=== PATIENT | male | born 1935 | race Caucasian/White ===

== ENCOUNTER 2017-11-09 17:54 | Inpatient (IN) | payer OTHER ==
[~2017-11-09] VITALS: Ht 177.8 cm; Wt 83.9 kg
[~2017-11-09 17:54] MED LIST: ACIDOPHILUS1 EACH PO; BACITRACIN28.4 GM TOP; BREO ELLIPTA 11 EACH INH; FUROSEMIDE20 M1 PO; LIPITOR80 M1 PO; LOTRIMIN AF12 GM TOP; METOPROLOL SUCC25 M1 PO; PRINIVIL5 M1 PO; XARELTO20 M2 PO
--- NOTE | 2017-11-09 18:19 | ED DYSPNEA/ASTHMA COMPLAINT ---
History of Present Illness General Chief Complaint: Nausea, Vomiting, Diarrhea Stated Complaint: PRODUCTIVE COUGH X 4 DAYS WITH FEVER AND VOMITING Source: patient, family, old records Exam Limitations: no limitations Vital Signs & Intake/Output Vital Signs & Intake/Output Vital Signs Date Time Temp Pulse Resp B/P B/P Pulse O2 O2 Flow FiO2 Mean Ox Delivery Rate 11/09 2058 98 Room Air 11/09 2032 99.5 76 20 148/82 98 Room Air 11/09 1805 99.3 73 18 134/76 98 Room Air Allergies Coded Allergies: NO KNOWN ALLERGIES (NO) (10/07/10) NKA PER ANTIBIOTIC ORDER SHEET ON 10/07/10 -SJS Reconcile Medications Atorvastatin Calcium (Lipitor) 80 MG TABLET 1 TAB PO DAILY CHOLESTEROL ( Reported) Bacitracin 500 UNIT/GRAM OINT...G. 1 ZAY TOP BID ULCERATIONS (Reported) apply to affected area(s) Clotrimazole (Lotrimin AF) 1 % CREAM..G. 1 ZAY TOP BID FEET (Reported) apply to affected area(s) Fluticasone/Vilanterol (Breo Ellipta 100-25 Mcg INH) (Unknown Strength) BLST.W.DEV (Unknown Dose) INH PRN RESP (Reported) Furosemide 20 MG TABLET 1 TAB PO Thursday DIURETIC (Reported) Lactobacillus Acidophilus (Acidophilus) 1 EACH CAPSULE 1 CAP PO DAILY PROBIOTIC (Reported) Lisinopril (Prinivil) 5 MG TABLET 1 TAB PO QAM BP (Reported) Metoprolol Succinate 25 MG TAB 1 TAB PO QPM HEART/BP (Reported) Montelukast Sodium 10 MG TABLET 1 TAB PO DAILY ALLERGIES (Reported) Rivaroxaban (Xarelto) 20 MG TABLET 1 TAB PO QPM BLOOD THINNER (Reported) with food Triage Note: RECEIVED 82 YO MALE VALDO FROM HOME. PT WAS FOUND IN HIS CAR BY A NEIGHBOR AND WAS BOUHGHT INSIDE HIS HOME AND DAUGHTER CALLED. PT REPORTS PRODUCTIVE GREEN COUGH X 4 DAYS AND NAUSEA, VOMITING AND WEAKNESS TODAY. PT AWAKE, ALERT AND ORIENTED. O2 SATS 98% Triage Nurses Notes Reviewed? yes Onset: Abrupt Duration: day(s):, constant, continues in ED Timing: recent history Severity: moderate, severe HPI: 82-year-old high functioning male comes into the emergency room with increased weakness. Patient has been having cough congestion. No fever chills vomiting. Some lightheadedness. Denies any chest pain abdominal pain rashes. Started with some episodes of vomiting today. He is usually able to drive and take care of himself and was profoundly weak to the point where he cannot even walk today. Brought in by ambulance for further evaluation. Patient has had a productive cough with mucus. (Rocky Little) Past History Travel History Traveled to [place] past 21 day No Medical History Any Pertinent Medical History? see below for history Neurological: NONE EENT: NONE Cardiovascular: aortic aneurysm, hypertension, PACER/DEFIB Respiratory: COPD Gastrointestinal: NONE Hepatic: NONE Renal: NONE Musculoskeletal: NONE Psychiatric: NONE Endocrine: NONE Blood Disorders: NONE Cancer(s): prostate cancer Surgical History Surgical History: AICD / pacer Psychosocial History What is your primary language Romanian Tobacco Use: Quit >30 days ago Family History Hx Contributory? No (Rocky Little) Review of Systems Review of Systems Constitutional: Reports: see HPI. EENTM: Reports: no symptoms. Respiratory: Reports: see HPI. Cardiovascular: Reports: see HPI. GI: Reports: no symptoms. Genitourinary: Reports: no symptoms. Musculoskeletal: Reports: no symptoms. Skin: Reports: no symptoms. Neurological/Psychological: Reports: no symptoms. Hematologic/Endocrine: Reports: no symptoms. Immunologic/Allergic: Reports: no symptoms. All Other Systems: Reviewed and Negative (Rocky Little) Physical Exam Physical Exam General Appearance: alert, awake, mild distress Head: atraumatic Eyes: Bilateral: normal appearance. Ears, Nose, Throat: normal ENT inspection, hearing grossly normal Neck: normal inspection Respiratory: normal breath sounds, no respiratory distress Cardiovascular: regular rate/rhythm Gastrointestinal: soft, non-tender Extremities: pedal edema, Mild erythema to right lower extremity Neurologic/Psych: awake, alert, oriented x 3 Skin: intact Core Measures ACS in differential dx? No CVA/TIA Diagnosis No Sepsis Present: No Sepsis Focused Exam Completed? No (Rocky Little) Progress Differential Diagnosis: asthma, AMI, CHF, COPD, pulmonary embolism, pneumonia, pneumothorax, UTI, sepsis, Plan of Care: Orders Procedure Date/time Status Heart Healthy Diet 11/10 B Active Misc Message 11/09 2300 Active ED Holding Orders 11/09 2300 Active Vital Signs 06/11 2301 Active Code Status 06/11 2301 Active Admit to inpatient 11/09 2258 Active Patient Data 11/09 223 Active LACTIC ACID 11/09 2117 Active Telemetry/Wet Suit Gluer 11/09 1817 Active BLOOD CULTURE 11/09 1817 Active URINALYSIS 11/09 1817 Complete TROPONIN LEVEL 11/09 1817 Complete LIPASE 11/09 1817 Complete LACTIC ACID 11/09 1817 Complete COMPREHENSIVE METABOLIC PANEL 11/09 1817 Complete CBC WITHOUT DIFFERENTIAL 11/09 1817 Complete B-TYPE NATRIURETIC PEP (BNP) 11/09 1817 Complete AMYLASE 11/09 1817 Complete EKG 11/09 1817 Active Current Medications Sig/James Start time Last Medication Dose Stop Time Status Admin Sodium Chloride 1,000 ML Q13H 11/09 2144 AC 11/09 (Normal Saline 0.9%) 221 Laboratory Tests 11/09/17 191: Urine Color YEL, Urine Clarity CLEAR, Urine pH 6.0, Ur Specific [place] 1.025, Urine Protein TRACE H, Urine Ketones NEG, Urine Nitrite NEG, Urine Bilirubin NEG, Urine Urobilinogen 0.2, Ur Leukocyte Esterase NEG, Ur Microscopic SEDIMENT EXAMINED, Urine RBC FEW H, Urine WBC RARE, Urine Mucus MOD H, Urine Hemoglobin TRACE-INTACT H, Urine Glucose NEG 11/09/171907: Anion Gap 11, Estimated GFR > 60, BUN/Creatinine Ratio 20.0, Glucose 89, Lactic Acid 1.0, Calcium 8.5, Total Bilirubin 0.7, AST 29, ALT 18 L, Alkaline Phosphatase 105, Troponin I 0.03, Vky-P-Mlxgaeoixaz Pept 4320 H, Total Protein 7.2, Albumin 3.9, Globulin 3.3, Albumin/Globulin Ratio 1.2, Amylase 69, Lipase 94, CBC w Diff NO MAN DIFF REQ, RBC 4.07 L, MCV 86.3, MCH 29.1, MCHC 33.7, RDW 14.8 H, MPV 8.4, Gran % 75.8 H, Lymphocytes % 11.1 L, Monocytes % 12.1 H, Eosinophils % 0.5, Basophils % 0.5, Absolute Granulocytes 4.7, Absolute Lymphocytes 0.7 L, Absolute Monocytes 0.7 H, Absolute Eosinophils 0, Absolute Basophils 0 Microbiology 11/09 190 BLOOD: Blood Culture - RECD 11/10 1707 BLOOD: Blood Culture - RECD Diagnostic Imaging: Viewed by Me: Radiology Read. Discussed w/RAD: Radiology Read. Radiology Impression: PATIENT: CONG LECHUGA PRESENT AGE: 82 PATIENT ACCOUNT NO: [id number] : 33 LOCATION: [facility] ORDERING PHYSICIAN: Rocky FRANKLIN SERVICE DATE: 11/09/17 EXAM TYPE : CAT - CT HEAD WO IV CONTRAST EXAMINATION: CT HEAD WITHOUT CONTRAST CLINICAL INFORMATION: Altered mental status. COMPARISON: None. TECHNIQUE: Multidetector CT examination of the head is performed without contrast. DLP: 629 mGy-cm FINDINGS: Digital associate professor of automation: Cervical instrumentation. There is no evidence of a recent intracranial hemorrhage or extra-axial collection. The midline structures are nondisplaced. There is age-appropriate prominence of the ventricles, cisterns and sulci. There is no evidence of an intra-axial mass. There are no suspicious focal areas of abnormal brain attenuation. The quick-white interface is within normal limits. There is no evidence of acute territorial infarct. There is extensive patchy subcortical, deep and periventricular white matter low attenuation. There is opacification of many of the ethmoid air cells. There is opacity within some of the sphenoid sinus. There are thick secretions or fluid in the right maxillary sinus with nodular thickening. There is a hyperdense abnormality in the left maxillary antrum. There is thickening in the nasal cavity. IMPRESSION: 1. There is no evidence of a recent intracranial hemorrhage. 2. No acute infarct. 3. Moderately extensive nonspecific white matter low attenuation. 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 Fairly extensive paranasal sinus and nasal cavity thickening. DICTATED BY: Antonio Munguia MD DATE/TIME DICTATED: 11/09/171947 SPINNER IRON:JADA DATE/TIME TRANSCRIBED:11/09/171947 CONFIDENTIAL, DO NOT COPY WITHOUT APPROPRIATE AUTHORIZATION. <Electronically signed in Other Vendor System> SIGNED BY: Antonio Munguia MD 11/09/171954, PATIENT: CONG LECHUGA PRESENT AGE: 82 PATIENT ACCOUNT NO: [id number] : 33 LOCATION: [facility] ORDERING PHYSICIAN: Rocky FRANKLIN SERVICE DATE: 11/09/17 EXAM TYPE: CAT - CT ABD & PELVIS W/O IV CONTRAS EXAMINATION: CT ABDOMEN AND PELVIS WITHOUT CONTRAST CLINICAL INFORMATION: Vomiting. Altered mental status COMPARISON: Portions of a previous study 05/02/11 TECHNIQUE: Multidetector volumetric imaging was performed from the superior aspect of the liver through the pubic symphysis. Sagittal and coronal reformatted images were obtained on the technologist's workstation. DLP: 300 mGy-cm FINDINGS: LUNG BASES: There is artifact related to sternal wires and cardiac leads. There is tortuosity of the aorta. Thickened small airways and a few small tree-in-bud opacities in the left lower lobe. LIVER, GALLBLADDER, AND BILIARY TREE: No suspicious focal liver lesion. The left lobe is small. There is widening of the interlobar fissure. There is no calcified gallstone. There is no biliary dilation. PANCREAS: No definite mass. SPLEEN: Within normal limits ADRENAL GLANDS: No suspicious mass KIDNEYS AND URETERS: There is no large renal mass. There is mild fullness of the intrarenal collecting system and ureter on each side. No definite urinary calculus. BLADDER: Mild generalized wall thickening could be related to incomplete distention. GASTROINTESTINAL TRACT: Large amount fecal residue in the colon. No definite localized colonic wall thickening. No significant small bowel dilation. Equivocal thickening of the distal stomach. ABDOMINAL WALL: No significant hernia is appreciated. LYMPH NODES: No definite enlarged abdominal or pelvic lymph nodes. No free intraperitoneal fluid. VASCULAR: There are surgical clips in the left inguinal region. This could be related to vascular intervention. There is no abdominal aortic aneurysm. PELVIC VISCERA: The prostate is relatively small. OSSEOUS STRUCTURES: Previous sternotomy. Healing lower left rib fractures. Degenerative changes in the spine. IMPRESSION: Study limited by absence of contrast. No definite urinary, biliary or GI tract obstruction. No abscess. Difficult to assess the stomach but there could be some distal gastric wall thickening. This is not a definite finding. DICTATED BY: Antonio Munguia MD DATE/TIME DICTATED:04/18 SPINNER IRON:JADA DATE/TIME TRANSCRIBED:11/09/172116 CONFIDENTIAL, DO NOT COPY WITHOUT APPROPRIATE AUTHORIZATION. <Electronically signed in Other Vendor System> SIGNED BY: Antonio Munguia MD 11/09/172127, PATIENT: CONG LECHUGA PRESENT AGE: 82 PATIENT ACCOUNT NO: [id number] : 33 LOCATION: [facility] ORDERING PHYSICIAN: Rocky FRANKLIN SERVICE DATE: 11/09/17 EXAM TYPE: RAD - XRY-PORTABLE CHEST XRAY EXAMINATION: XR PORTABLE CHEST CLINICAL INFORMATION: Cough. COMPARISON: Chest radiograph 12/11/2016. TECHNIQUE: 2 portable frontal views of the chest were obtained. FINDINGS: The lungs are clear without consolidation, edema, effusion, or pneumothorax. The heart is top normal in size and the aorta is calcified. There is a left chest wall AICD in position. There are sternotomy wires in place. There are postoperative changes in the cervical spine. IMPRESSION: No active disease in the chest. DICTATED BY: Julio Cesar Ramirez MD DATE /TIME DICTATED:11/09/171916 SPINNER IRON:JADA DATE/TIME TRANSCRIBED: 11/09/171916 CONFIDENTIAL, DO NOT COPY WITHOUT APPROPRIATE AUTHORIZATION. < Electronically signed in Other Vendor System> SIGNED BY: Julio Cesar Ramirez MD 11/09/171921 Initial ED EKG: rate (75), pacemaker rhythm (Rocky Little) Departure Departure Disposition: STILL A PATIENT Condition: Stable Clinical Impression Primary Impression: Bronchitis Secondary Impressions: Gait instability, Sinusitis Referrals: Silva JORGE,Cash Camacho (PCP/Family) Departure Forms: Customer Survey General Discharge Information Admission Note Spoke With: Erick Stroud MD Documentation of Exam: Documentation of any treatments & extenuating circumstances including Concerns Regarding Discharge (functional status, medication knowledge or non-compliance, living conditions, etc.) that warrant an admission rather than observation: Patient will require physical therapy. IV antibiotics. Patient is below his normal mental status and ability to function. Unable to ambulate here in the emergency room. Profoundly weak. He is normally high functioning 82-year-old male. He may require short-term rehabilitation. Case management consultation. Infectious disease consultation. Gentle IV hydration. (Rocky Little) PA/BUCKET PUSHER Co-Sign Statement Statement: ED Attending supervision documentation- [X] I saw and evaluated the patient. I have also reviewed all the pertinent lab results and diagnostic results. I agree with the findings and the plan of care as documented in the PA's/BUCKET PUSHER's documentation. [] I have reviewed the ED Record and agree with the PA's/BUCKET PUSHER's documentation. [] Additions or exceptions (if any) to the PAs/BUCKET PUSHER's note and plan are summarized below: [] (Mable JORGE,Dell Garcia) Critical Care Note Critical Care Note Critical Care Time: non-applicable (Rocky Little)
--- NOTE | 2017-11-09 19:22 | RADIOLOGY REPORT ---
EXAMINATION: XR PORTABLE CHEST CLINICAL INFORMATION: Cough. COMPARISON: Chest radiograph 12/11/2016. TECHNIQUE: 2 portable frontal views of the chest were obtained. FINDINGS: The lungs are clear without consolidation, edema, effusion, or pneumothorax. The heart is top normal in size and the aorta is calcified. There is a left chest wall AICD in position. There are sternotomy wires in place. There are postoperative changes in the cervical spine. IMPRESSION: No active disease in the chest.
[2017-11-09 19:28] LABS: ABSOLUTE BASOPHIL COUNT 0 /CUMM (0.0-0.2); ABSOLUTE EOSINOPHIL COUNT 0 /CUMM (0.0-0.7); ABSOLUTE GRANULOCYTE CT 4.7 /CUMM (1.4-6.5); ABSOLUTE LYMPH COUNT 0.7 /CUMM (1.2-3.4); ABSOLUTE MONOCYTE COUNT 0.7 /CUMM (0.10-0.60); BASOPHIL % 0.5 % (0.0-2.0); EOSINOPHIL % 0.5 % (0-5); GRANULOCYTE % 75.8 % (42.2-75.2); HEMATOCRIT 35.2 % (42-52); MEAN CORPUSCULAR HGB 29.1 PG (27.0-31.0); MEAN CORPUSCULAR HGB CONC 33.7 G/DL (33.0-37.0); MEAN CORPUSCULAR VOLUME 86.3 FL (80.0-94.0); MEAN PLATELET VOLUME 8.4 FL (7.4-10.4); PLATELET COUNT 127 /CUMM (130-400); RBC DISTRIBUTION WIDTH 14.8 % (11.5-14.5); RED BLOOD CELL CT 4.07 /CUMM (4.70-6.10); WHITE BLOOD CELL COUNT 6.2 /CUMM (4.8-10.8)
--- NOTE | 2017-11-09 19:55 | CT SCAN REPORT ---
EXAMINATION: CT HEAD WITHOUT CONTRAST CLINICAL INFORMATION: Altered mental status. COMPARISON: None. TECHNIQUE: Multidetector CT examination of the head is performed without contrast. DLP: 629 mGy-cm FINDINGS: Digital research neuropsychologist: Cervical instrumentation. There is no evidence of a recent intracranial hemorrhage or extra-axial collection. The midline structures are nondisplaced. There is age-appropriate prominence of the ventricles, cisterns and sulci. There is no evidence of an intra-axial mass. There are no suspicious focal areas of abnormal brain attenuation. The quick-white interface is within normal limits. There is no evidence of acute territorial infarct. There is extensive patchy subcortical, deep and periventricular white matter low attenuation. There is opacification of many of the ethmoid air cells. There is opacity within some of the sphenoid sinus. There are thick secretions or fluid in the right maxillary sinus with nodular thickening. There is a hyperdense abnormality in the left maxillary antrum. There is thickening in the nasal cavity. IMPRESSION: 1. There is no evidence of a recent intracranial hemorrhage. 2. No acute infarct. 3. Moderately extensive nonspecific white matter low attenuation. 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 Fairly extensive paranasal sinus and nasal cavity thickening.
--- NOTE | 2017-11-09 21:28 | CT SCAN REPORT ---
EXAMINATION: CT ABDOMEN AND PELVIS WITHOUT CONTRAST CLINICAL INFORMATION: Vomiting. Altered mental status COMPARISON: Portions of a previous study 05/02/11 TECHNIQUE: Multidetector volumetric imaging was performed from the superior aspect of the liver through the pubic symphysis. Sagittal and coronal reformatted images were obtained on the technologist's workstation. DLP: 300 mGy-cm FINDINGS: LUNG BASES: There is artifact related to sternal wires and cardiac leads. There is tortuosity of the aorta. Thickened small airways and a few small tree-in-bud opacities in the left lower lobe. LIVER, GALLBLADDER, AND BILIARY TREE: No suspicious focal liver lesion. The left lobe is small. There is widening of the interlobar fissure. There is no calcified gallstone. There is no biliary dilation. PANCREAS: No definite mass. SPLEEN: Within normal limits ADRENAL GLANDS: No suspicious mass KIDNEYS AND URETERS: There is no large renal mass. There is mild fullness of the intrarenal collecting system and ureter on each side. No definite urinary calculus. BLADDER: Mild generalized wall thickening could be related to incomplete distention. GASTROINTESTINAL TRACT: Large amount fecal residue in the colon. No definite localized colonic wall thickening. No significant small bowel dilation. Equivocal thickening of the distal stomach. ABDOMINAL WALL: No significant hernia is appreciated. LYMPH NODES: No definite enlarged abdominal or pelvic lymph nodes. No free intraperitoneal fluid. VASCULAR: There are surgical clips in the left inguinal region. This could be related to vascular intervention. There is no abdominal aortic aneurysm. PELVIC VISCERA: The prostate is relatively small. OSSEOUS STRUCTURES: Previous sternotomy. Healing lower left rib fractures. Degenerative changes in the spine. IMPRESSION: Study limited by absence of contrast. No definite urinary, biliary or GI tract obstruction. No abscess. Difficult to assess the stomach but there could be some distal gastric wall thickening. This is not a definite finding.
[2017-11-09] MEDS ORDERED: MONTELUKAST SOD10 M1 PO (21:51)
--- NOTE | 2017-11-09 22:39 | History & Physical ---
Michael JORGE,Fred 11/09/17 2238: General Information and HPI MD Statement: I have seen and personally examined CONG LECHUGA SR and documented this H&P. The patient is a 82 year old M who presented with a patient stated chief complaint of []. Source of Information: patient, old records Exam Limitations: confusion History of Present Illness: Patient is an 82-year-old male with PMH significant for AAA, HTN, CHF, A. fib status post pacemaker defibrillator placement, COPD, right knee arthritis, prostate cancer status post chemotherapy approximately 78 years ago currently in remission, who is brought in by ambulance to the [facility] ED after being found confused and weak by his neighbor. Patient reports that approximately 1 week prior to admission he began having nonbloody diarrhea, a few episodes a day. About 45 days prior to admission he began having nasal congestion, postnasal drip, cough with green sputum. He had poor p.o. intake for the past several days, and was found in his car today appearing confused by his neighbor. He cannot recall why he was in his car. He was very weak at this time, required assistance getting back into his house. He had an episode of vomiting after his neighbor gave him some water and at that time they called the ambulance. Patient was able to provide most of this history however it was corroborated by his daughter (Yadira James). he denies any shortness of breath, fevers, chills, chest pain, palpitations, lightheadedness, dizziness, syncope. Patient follows with Dr. Car for cardiology. Allergies/Medications Allergies: Coded Allergies: NO KNOWN ALLERGIES (NO) (10/07/10) NKA PER ANTIBIOTIC ORDER SHEET ON 10/07/10 -[facility] Home Med list Atorvastatin Calcium (Lipitor) 80 MG TABLET 1 TAB PO DAILY CHOLESTEROL ( Reported) Bacitracin 500 UNIT/GRAM OINT...G. 1 ZAY TOP BID ULCERATIONS (Reported) apply to affected area(s) Clotrimazole (Lotrimin AF) 1 % CREAM..G. 1 ZAY TOP BID FEET (Reported) apply to affected area(s) Fluticasone/Vilanterol (Breo Ellipta 100-25 Mcg INH) (Unknown Strength) BLST.W.DEV (Unknown Dose) INH PRN RESP (Reported) Furosemide 20 MG TABLET 1 TAB PO Thursday DIURETIC (Reported) Lactobacillus Acidophilus (Acidophilus) 1 EACH CAPSULE 1 CAP PO DAILY PROBIOTIC (Reported) Lisinopril (Prinivil) 5 MG TABLET 1 TAB PO QAM BP (Reported) Metoprolol Succinate 25 MG TAB 1 TAB PO QPM HEART/BP (Reported) Montelukast Sodium 10 MG TABLET 1 TAB PO DAILY ALLERGIES (Reported) Rivaroxaban (Xarelto) 20 MG TABLET 1 TAB PO QPM BLOOD THINNER (Reported) with food Past History Travel History Traveled to [place] past 21 day No Medical History Neurological: NONE EENT: NONE Cardiovascular: aortic aneurysm, AFIB, chronic venous insuff, hypertension, PACER/DEFIB, CHF Respiratory: COPD Gastrointestinal: NONE Hepatic: NONE Renal: NONE Musculoskeletal: NONE Psychiatric: NONE Endocrine: NONE Blood Disorders: NONE Cancer(s): prostate cancer Surgical History Surgical History: hernia repair-inguinal, AICD / pacer Past Family/Social History Family History Relations & Conditions if any Relation not specified for: *No pertinent family history Psychosocial History Where do you live? Home Who Do You Live With? self Services at Home: None Primary Language: Maori Smoking Status: Former Smoker ETOH Use: occasional use Illicit Drug Use: denies illicit drug use Living Will? yes Functional Ability ADLs Independent: dressing, eating, toileting, bathing. Ambulation: cane IADLs Independent: shopping, housework, finances, food prep, telephone, transportation , medication admin. Review of Systems Review of Systems Constitutional: Denies: chills, fever, weakness. EENTM: Denies: blurred vision, double vision, visual changes. Cardiovascular: Reports: peripheral edema (chronic). Denies: chest pain, palpitations, syncope. Respiratory: Reports: cough, sputum production. Denies: short of breath. GI: Reports: diarrhea, nausea, vomiting. Denies: abdominal pain, melena. Genitourinary: Reports: frequency. Denies: discharge, hematuria. Musculoskeletal: Reports: no symptoms. Skin: Reports: no symptoms. Neurological/Psychological: Reports: no symptoms. Hematologic/Endocrine: Reports: no symptoms. Exam & Diagnostic Data Last 24 Hrs of Vital Signs/I&O Vital Signs Date Time Temp Pulse Resp B/P B/P Pulse O2 O2 Flow FiO2 Mean Ox Delivery Rate 11/09 2330 100.4 83 18 130/78 95 Room Air 06/11 2059 98 Room Air 11/09 2032 99.5 76 20 148/82 98 Room Air 11/09 180 99.3 73 18 134/76 98 Room Air Intake & Output 11/10 0800 11/10 0000 11/09 1600 Intake Total 250 Output Total Balance 250 Intake, IV 250 Patient 198 lb Weight Weight Estimated Measurement Method Physical Exam General Appearance Alert, Cooperative, No Acute Distress, oriented to person and time, knows he is in a hospital but not the name Skin Temp/Moisture Exam: Warm/Dry Sepsis Skin Exam (color): Normal for Ethnicity HEENT Atraumatic, PERRLA, EOMI, dry mucous membranes Cardiovascular Regular Rate, Normal S1, Normal S2, AICD noted on L chest, systolic murmur at apex Lungs Clear to Auscultation, Normal Air Movement Abdomen Normal Bowel Sounds, Soft, No Tenderness Neurological Normal Speech, Strength at 5/5 X4 Ext, Normal Tone, Sensation Intact, Cranial Nerves 3-12 NL Extremities distal LE edema R>L Last 24 Hrs of Labs/Juan David: Laboratory Tests 11/09/172117: Lactic Acid Cancelled 11/09/171913: Urine Color YEL, Urine Clarity CLEAR, Urine pH 6.0, Ur Specific Mcgregor 1.025, Urine Protein TRACE H, Urine Ketones NEG, Urine Nitrite NEG, Urine Bilirubin NEG, Urine Urobilinogen 0.2, Ur Leukocyte Esterase NEG, Ur Microscopic SEDIMENT EXAMINED, Urine RBC FEW H, Urine WBC RARE, Urine Mucus MOD H, Urine Hemoglobin TRACE-INTACT H, Urine Glucose NEG 11/09/17 190: Anion Gap 11, Estimated GFR > 60, BUN/Creatinine Ratio 20.0, Glucose 89, Lactic Acid 1.0, Calcium 8.5, Phosphorus 3.3, Magnesium 1.7, Total Bilirubin 0.7, AST 29, ALT 18 L, Alkaline Phosphatase 105, Troponin I 0.03, Kkt-G-Buvnmkbfzns Pept 4320 H, Total Protein 7.2, Albumin 3.9, Globulin 3.3, Albumin/Globulin Ratio 1.2, Amylase 69, Lipase 94, TSH 0.566, CBC w Diff NO MAN DIFF REQ, RBC 4.07 L, MCV 86.3, MCH 29.1, MCHC 33.7, RDW 14.8 H, MPV 8.4, Gran % 75.8 H, Lymphocytes % 11.1 L, Monocytes % 12.1 H, Eosinophils % 0.5, Basophils % 0.5, Absolute Granulocytes 4.7, Absolute Lymphocytes 0.7 L, Absolute Monocytes 0.7 H, Absolute Eosinophils 0, Absolute Basophils 0 Microbiology 11/09 2306 LOWER RESP: Respiratory Culture - ORD 11/09 2306 LOWER RESP: Gram Stain - ORD 11/09 1900 BLOOD: Blood Culture - RECD 11/09 1708 BLOOD: Blood Culture - RECD Diagnostic Data EKG Results Paced, HR 75, QTc 492 CXR Results The lungs are clear without consolidation, edema, effusion, or pneumothorax. The heart is top normal in size and the aorta is calcified. There is a left chest wall AICD in position. There are sternotomy wires in place. There are postoperative changes in the cervical spine. IMPRESSION: No active disease in the chest. Other Results Head CT Digital medical record retrieval specialist: Cervical instrumentation. There is no evidence of a recent intracranial hemorrhage or extra-axial collection. The midline structures are nondisplaced. There is age-appropriate prominence of the ventricles, cisterns and sulci. There is no evidence of an intra-axial mass. There are no suspicious focal areas of abnormal brain attenuation. The quick-white interface is within normal limits. There is no evidence of acute territorial infarct. There is extensive patchy subcortical, deep and periventricular white matter low attenuation. There is opacification of many of the ethmoid air cells. There is opacity within some of the sphenoid sinus. There are thick secretions or fluid in the right maxillary sinus with nodular thickening. There is a hyperdense abnormality in the left maxillary antrum. There is thickening in the nasal cavity. IMPRESSION: 1. There is no evidence of a recent intracranial hemorrhage. 2. No acute infarct. 3. Moderately extensive nonspecific white matter low attenuation. 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 Fairly extensive paranasal sinus and nasal cavity thickening. CT abd/pelvis LUNG BASES: There is artifact related to sternal wires and cardiac leads. There is tortuosity of the aorta. Thickened small airways and a few small tree-in-bud opacities in the left lower lobe. LIVER, GALLBLADDER, AND BILIARY TREE: No suspicious focal liver lesion. The left lobe is small. There is widening of the interlobar fissure. There is no calcified gallstone. There is no biliary dilation. PANCREAS: No definite mass. SPLEEN: Within normal limits ADRENAL GLANDS: No suspicious mass KIDNEYS AND URETERS: There is no large renal mass. There is mild fullness of the intrarenal collecting system and ureter on each side. No definite urinary calculus. BLADDER: Mild generalized wall thickening could be related to incomplete distention. GASTROINTESTINAL TRACT: Large amount fecal residue in the colon. No definite localized colonic wall thickening. No significant small bowel dilation. Equivocal thickening of the distal stomach. ABDOMINAL WALL: No significant hernia is appreciated. LYMPH NODES: No definite enlarged abdominal or pelvic lymph nodes. No free intraperitoneal fluid. VASCULAR: There are surgical clips in the left inguinal region. This could be related to vascular intervention. There is no abdominal aortic aneurysm. PELVIC VISCERA: The prostate is relatively small. OSSEOUS STRUCTURES: Previous sternotomy. Healing lower left rib fractures. Degenerative changes in the spine. IMPRESSION: Study limited by absence of contrast. No definite urinary, biliary or GI tract obstruction. No abscess. Difficult to assess the stomach but there could be some distal gastric wall thickening. This is not a definite finding. Assessment/Plan Assessment: Patient is an 82-year-old male with PMH significant for AAA, HTN, CHF, A. fib status post pacemaker defibrillator placement, COPD, right knee arthritis, prostate cancer status post chemotherapy approximately 78 years ago currently in remission, who is brought in by ambulance to the [facility] ED after being found confused and weak by his neighbor. Patient reports that approximately 1 week prior to admission he began having nonbloody diarrhea, a few episodes a day. About 45 days prior to admission he began having nasal congestion, postnasal drip, cough with green sputum. Patient is oriented 2, is aware of his confusion and per his daughter he has altered mental status compared to baseline. Head CT showing paranasal sinus thickening and nasal cavity thickening, CXR shows no acute infective process however abdomen/pelvis CT shows small left lower lobe opacities Vital signs on presentation: T-max 100.4, P 73, RR 18, BP 134/76, oxygen saturation 98% on room air Labs: WBC 6.2, H/H 11.8/35.2, platelets 127, sodium 136, potassium 4.3, chloride 100, CO2 25, BUN 20, creatinine 1.0, glucose 89, lactic acid 1.0, proBNP 4320 Problem list #Bronchitis with suspected pneumonia #Chronic medical problems including A. fib, CHF, AAA, COPD Plan -Admit to general medicine -IV azithromycin, IV ceftriaxone -Mucinex -TRC/nebs -sputum culture, blood cultures, urine legionella and strep atigens -Gentle IV hydration -Consider repeat chest x-ray after IV hydration -hold home lisinopril for now restart if BP allows, hold home lasix - Continue rest of home medications, of note patient is currently on Xarelto however his insurance will no longer cover this, he will continue taking Xarelto until he runs out at home and then switch to Eliquis, we will continue Xarelto for now Diet: Heart healthy diet DVT prophylaxis: Xarelto, Alps CODE STATUS: Full code As Ranked By This Provider Problem List: 1. Bronchitis 2. Pneumonia Core Measures/Misc (02/15) Acute Coronary Syndrome ACS Diagnosis: No Congestive Heart Failure Congestive Heart Failure Diagnosis No Cerebrovascular Accident CVA/TIA Diagnosis: No VTE (View Protocol) VTE Risk Factors Age>40 No Mechanical VTE Prophylaxis d/t N/A MechProphylax Ordered No VTE Pharm Prophylaxis d/t NA PharmProphylax ordered Sepsis (View protocol) Sepsis Present: No If YES complete Sepsis Event Note If YES complete Sepsis Event Note Samreen JORGE,Ismail 11/09/17 2301: Core Measures/Misc (02/15) Sepsis (View protocol) If YES complete Sepsis Event Note If YES complete Sepsis Event Note Resident Review Statement Resident Statement: examined this patient, discussed with international first officer, agreed with international first officer, reviewed images Other Findings: HPI 82/M With PMHx of HTN, COPD, Prostate cancer s/p chemo 7-8 years ago, stable AAA , A. fib, and CHF with Pacer/AICD, who presented with 4 days of cough. The pt reports diarrhea for couple of days followed by nasal congestion postnasal drip, and cough that started 4 days ago and progressed to cough productive of green sputum, lethargic and poor appetite. Earlier today his neighbor found him in his car with mild confused and weakness. The neighbor tried to give him some water, but he developed nausea and vomited once. He required assistance to get back into his house. He denies dyspnea, fever, chills, chest pain, palpitation, lightheadedness, dizziness, syncope, sick contacts, or recent travel. Assessment: The patient presents with cough productive of green sputum, weakness and mild confusion. It may be early for x-ray to show signs for pneumonia. He developed a fever up to 100.4 and had thickened small airways and a few small tree-in-bud opacities in the left lower lobe on lung bases on Abd CT. given his presentation we will treat him as a CAP with IV ceftriaxone and azithromycin. This should also cover possible sinusitis as Head CT showed extensive paranasal sinus and nasal cavity thickening. If blood pressure is stable we will restart lisinopril in am. He report poor oral intake for the past few days and recent diarrhea, we will hold lasix and IV hydrate with NS @ 75ml/h. All other chronic condition looks stable, we will continue the rest of his home medications. Problem list * Hypertension * COPD not on home oxygen * Stable AAA * A. fib * CHF * Pacemaker/ACID * Prostate cancer in remission. Plan: * Admit to general medicine floor * Start IV ceftriaxone and continue IV azithromycin * Mucinex BID and nasal saline spray Q4 * Sputum culture, strep and Legionella and urine * Hydrate with IV normal saline at rate 75 mL per hour * Hold Lasix until able to tolerate oral intake. * Continue Xarelto * Start Symbicort, at home he is on Breo * Continue metoprolol 25 mg XL * Continue atorvastatin * Continue Montelukast -Full code -DVT prophylaxis with Alps and Xarelto -Heart healthy diet LuanneErick dobbins 11/10/17 0419: Core Measures/Misc (02/15) Sepsis (View protocol) If YES complete Sepsis Event Note If YES complete Sepsis Event Note Attending MD Review Statement Attending Statement Attending MD Statement: examined this patient, discuss w/resident/PA/ENVELOPE STUFFER, agreed w/resident/PA/ENVELOPE STUFFER, reviewed EMR data (avail), reviewed images, amended to note Attending Assessment/Plan: CC: Productive cough, lethargy and confusion PMH: COPD/asthma, history of A. fib S/P AICD, abdominal aortic aneurysm, history of CA prostate under remission, HLD, HTN, arthritis, right lower extremity vascular procedure Patient was brought in ER through EMS from home after he was found in his car by his neighbor weak and lethargic. Patient states that he drove to restaurant this morning, when he came back he was feeling very weak and tired so he was sitting in the car when his neighbor saw him and came to help him. Then neighbor was trying to help him inside home patient could not even walk and had to sit bicarbonate side. At that time he had nausea and one episode of vomiting. So he was brought in ER. Patient states that he has been having cough with greenish color expectoration since last 4 days along with nasal congestion and sinus congestion postnasal drip. He states that he has been having sinus congestion and postnasal drip for a long time, followed up with ENT in the past without much relief but cough has been worse since last 4 days with decreased by mouth intake. Patient also states that he had diarrhea for 3 days prior to this cough, 2-3 loose bowel movements per day not associated with nausea vomiting, abdominal cramping, bloody stool or fever or chills. At baseline patient is independent, lives alone. Lately he has been noticing increased frequency in urine and he was suggested to follow-up with urologist by his primary care physician. He denies any pleuritic chest pain, palpitation, dizziness, fever, chills, body rash. Vitals: Temperature 99.5, pulse 76, RR 20, blood pressure 148/82, saturating 98% on room air On examination: A O 2, cooperative, lethargic, constantly coughing, no acute distress, neck supple, JVD normal, no lymphadenopathy, mucosa dry, no focal neurological deficit, right LE swelling +2 >> LLE , no obvious skin rashes or inflammation CVS: S1-S2, irregular, paroxysmal systolic murmur. RS: Clear to auscultate bilaterally. Abdomen: Soft, NT, ND, bowel sounds present. CXR: No active disease in the chest. CT head without contrast: 1. There is no evidence of a recent intracranial hemorrhage. 2. No acute infarct. 3. Moderately extensive nonspecific white matter low attenuation. 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 Fairly extensive paranasal sinus and nasal cavity thickening. CT abdomen pelvis without IV contrast: 1. Study limited by absence of contrast. No definite urinary, biliary or GI tract obstruction. No abscess. Difficult to assess the stomach but there could be some distal gastric wall thickening. This is not a definite finding. 2. There is artifact related to sternal wires and cardiac leads. There is tortuosity of the aorta. Thickened small airways and a few small tree-in-bud opacities in the left lower lobe. Assessment and plan 82-year-old male with above-mentioned past medical history presented in ER for lethargy, weakness, 4 day history of productive cough with greenish color sputum production, an episode of confusion and nausea vomiting that happened today. Patient has significant nasal twang, nasal congestion, sinusitis on examination and confirmed on head CT scan. Additionally patient appears to have early pneumonia which is not evident on x-ray but CT abdomen and pelvis done without contrast showed thickened small airway and a few small tree-in-bud opacities in left lower lobe. Patient has mild left shift otherwise labs unremarkable. Received azithromycin ER with 1 L normal saline, we'll additionally give ceftriaxone to continue treatment for community-acquired pneumonia, gentle hydration. Patient's proBNP is 4320 but baseline unknown, currently patient does not appear in acute failure and in fact appears dehydrated requiring hydration. We'll hold off any antihypertensives and diuretics for now. + Suspected left lower lobe pneumonia + Bronchitis, sinusitis + History of COPD/asthma, history of A. fib S/P AICD, abdominal aortic aneurysm, history of CA prostate under remission, HLD, HTN, arthritis, right lower extremity vascular procedure - Admit to general medicine - Continue gentle hydration with normal saline at 75 mL per hour for 1 more liter - Blood culture, sputum culture - Continue IV ceftriaxone and azithromycin - Urine Legionella and strep antigen - Continue nasal fluticasone spray - TR nebs - Mucinex - Conform and Continue all his home medications except lisinopril and Lasix. Restart lisinopril in a.m. if blood pressure stable throughout the night - DVT prophylaxis
[2017-11-10 00:56] VITALS: BP 127/75
--- NOTE | 2017-11-10 04:21 | Admission Certification ---
Admission Certification Certification Statement - As attending physician, I certify that at the time of - admission, based on clinical presentation, severity of - symptoms, need for further diagnostic testing and - therapeutic interventions, and risk of adverse outcomes - without in-hospital treatment, in my clinical assessment, - this patient requires an acute hospital stay for a minimum - of two nights or longer. I have also considered psychsocial - factors such as support system, advanced age, financial - issues, cognitive issues, and failed out-patient treatments, - past re-admission history, safety of patient, and lack of - compliance as applicable. Specific rationale supporting this admission is: Suspected left lower lobe pneumonia
[2017-11-10 06:20] VITALS: BP 126/64
--- NOTE | 2017-11-10 07:29 | PN- Housestaff ---
Subjective Follow-up For: Bronchitis CAP Subjective: Patient reports nasal congestion and cough. He also reports he his using Xarelto at home prescribed by Dr. Goddard because he does not want to throw it away prior to starting his Apixaban that was started by his current PCP-Dr. Ascencio Review of Systems Constitutional: Reports: see HPI. Objective Last 24 Hrs of Vital Signs/I&O Vital Signs Date Time Temp Pulse Resp B/P B/P Pulse O2 O2 Flow FiO2 Mean Ox Delivery Rate 11/10 1030 Room Air Room Air 11/10 0844 75 126/64 11/10 0800 Room Air 11/10 0620 99.0 75 20 126/64 93 Room Air 11/10 0056 99.1 80 22 127/75 95 Room Air 11/09 2330 100.4 83 18 130/78 95 Room Air 11/09 2059 98 Room Air 11/09 2033 99.5 76 20 148/82 98 Room Air 11/09 1806 99.3 73 18 134/76 98 Room Air Intake & Output 11/10 1600 11/10 0800 11/10 0000 Intake Total 840 250 Output Total 150 Balance -150 840 250 Intake, IV 600 250 Intake, Oral 240 Output, Urine 150 Patient 186 lb 198 lb Weight Weight Bed scale Estimated Measurement Method Physical Exam General Appearance: Alert, Oriented X3, Cooperative, No Acute Distress Cardiovascular: 2/6 systolic murmur Lungs: Decreased breath sounds Abdomen: Normal Bowel Sounds, Soft, No Tenderness Current Medications: Current Medications Sig/James Start time Last Medication Dose Route Stop Time Status Admin Albuterol Sulfate 3 ML BID 11/10 1028 AC 11/10 INH 1029 Apixaban 5 MG BID 11/11 0900 AC PO Atorvastatin Calcium 80 MG 1700 11/10 1700 AC PO Azithromycin 500 MG DAILY 11/10 09 AC 11/10 Sodium Chloride 250 ML IV 0847 Azithromycin 500 MG ONCE ONE 11/09 2145 DC 11/09 Sodium Chloride 250 ML IV 11/09 2244 2219 Budesonide/ 2 PUF BID 11/10 09 AC 11/10 Formoterol Fumarate INH 0844 Ceftriaxone Sodium 1,000 MG Q24H 11/11 0200 AC IV Ceftriaxone Sodium 1,000 MG DAILY 11/10 0215 DC 11/10 IV 0221 Clotrimazole 1 ZAY BID 11/10 09 AC 06/12 TOP 0842 Fluticasone 2 SPRAY DAILY 11/10 0946 AC 11/10 Propionate AMADA 1057 Guaifenesin 600 MG Q12 11/10 0900 AC 11/10 PO 0850 Ipratropium [place] 2.5 ML BID 11/10 1028 AC 11/10 INH 1029 Lactobacillus 1 CAP DAILY 11/10 0900 AC 11/10 Acidophilus PO 0844 Lisinopril 5 MG QAM 11/10 0900 CAN PO Lisinopril 5 MG DAILY 11/10 0900 AC 11/10 PO 0844 Metoprolol Succinate 25 MG QPM 11/10 2100 AC PO Montelukast Sodium 10 MG 2200 11/10 2200 AC PO Oxymetazoline HCl 2 SPRAY BID 11/10 0945 11/10 AMADA 1057 Patient Medication 1 ED ONE ONE 11/10 1130 DC Teaching ED 11/10 1131 Rivaroxaban 20 MG DAILY 11/10 0900 CAN PO Rivaroxaban 20 MG DAILY 11/10 0900 DC 11/10 PO 0843 Sodium Chloride 2 SPRAY Q4P PRN 11/10 0615 AMADA Sodium Chloride 1,000 ML Q13H 11/09 2145 UT 11/09 IV 2219 Last 24 Hrs of Lab/Juan David Results Last 24 Hrs of Labs/Mics: Laboratory Tests 11/10/17 0640: Anion Gap 9, Estimated GFR > 60, BUN/Creatinine Ratio 21.1, Vitamin B12 657, Folate 19.5, CBC w Diff NO MAN DIFF REQ, RBC 3.81 L, MCV 86.7, MCH 29.0, MCHC 33.5, RDW 14.7 H, MPV 8.5, Gran % 61.4, Lymphocytes % 20.9, Monocytes % 17.0 H , Eosinophils % 0.2, Basophils % 0.5, Absolute Granulocytes 3.4, Absolute Lymphocytes 1.2, Absolute Monocytes 0.9 H, Absolute Eosinophils 0, Absolute Basophils 0 11/09/172117: Lactic Acid Cancelled 11/09/171913: Urine Color YEL, Urine Clarity CLEAR, Urine pH 6.0, Ur Specific [place] 1.025, Urine Protein TRACE H, Urine Ketones NEG, Urine Nitrite NEG, Urine Bilirubin NEG, Urine Urobilinogen 0.2, Ur Leukocyte Esterase NEG, Ur Microscopic SEDIMENT EXAMINED, Urine RBC FEW H, Urine WBC RARE, Urine Mucus MOD H, Urine Hemoglobin TRACE-INTACT H, Urine Glucose NEG 11/09/171907: Anion Gap 11, Estimated GFR > 60, BUN/Creatinine Ratio 20.0, Glucose 89, Lactic Acid 1.0, Calcium 8.5, Phosphorus 3.3, Magnesium 1.7, Total Bilirubin 0.7, AST 29, ALT 18 L, Alkaline Phosphatase 105, Troponin I 0.03, Ibq-G-Hjdvgxidggj Pept 4320 H, Total Protein 7.2, Albumin 3.9, Globulin 3.3, Albumin/Globulin Ratio 1.2, Amylase 69, Lipase 94, TSH 0.566, CBC w Diff NO MAN DIFF REQ, RBC 4.07 L, MCV 86.3, MCH 29.1, MCHC 33.7, RDW 14.8 H, MPV 8.4, Gran % 75.8 H, Lymphocytes % 11.1 L, Monocytes % 12.1 H, Eosinophils % 0.5, Basophils % 0.5, Absolute Granulocytes 4.7, Absolute Lymphocytes 0.7 L, Absolute Monocytes 0.7 H, Absolute Eosinophils 0, Absolute Basophils 0 Microbiology 11/10 08 LOWER RESP: Respiratory Culture - RES 11/10 856 LOWER RESP: Gram Stain - RES 11/10 329 URINE ROUT: Legionella Antigen - COMP 11/10 329 URINE ROUT: Streptococcus pneumoniae Antigen (M - COMP 11/09 1899 BLOOD: Blood Culture - RES 11/10 1707 BLOOD: Blood Culture - RES Assessment/Plan Assessment: 82-year-old male with PMH significant for AAA, HTN, CHF, A. fib status post pacemaker defibrillator placement, COPD, right knee arthritis, prostate cancer status post chemotherapy approximately 78 years ago currently in remission, who is brought in by ambulance to the [facility] ED after being found confused and weak by his neighbor. #Bronchitis with underlying pneumonia Plan Continue IV azithromycin, IV ceftriaxone TRC/nebs PRN Await final sputum culture, blood cultures Urine legionella and strep ag negative Resume lisinopril Lasix on hold We spoke to Dr. Ascencio who states that the patient should be on Apixaban 5 mg BID We will discontinue his Xarelto and restart him on APixaban Diet: Heart healthy diet DVT prophylaxis: Apixaban CODE STATUS: Full Problem List: 1. Bronchitis 2. Pneumonia Pain Ratin Pain Location: NA Pain Goal: Remain pain free Pain Plan: NA Tomorrow's Labs & Rationales: CBC, BEP
[2017-11-10 07:45] LABS: ABSOLUTE BASOPHIL COUNT 0 /CUMM (0.0-0.2); ABSOLUTE EOSINOPHIL COUNT 0 /CUMM (0.0-0.7); ABSOLUTE GRANULOCYTE CT 3.4 /CUMM (1.4-6.5); ABSOLUTE LYMPH COUNT 1.2 /CUMM (1.2-3.4); ABSOLUTE MONOCYTE COUNT 0.9 /CUMM (0.10-0.60); BASOPHIL % 0.5 % (0.0-2.0); EOSINOPHIL % 0.2 % (0-5); GRANULOCYTE % 61.4 % (42.2-75.2); MEAN CORPUSCULAR HGB CONC 33.5 G/DL (33.0-37.0); MEAN CORPUSCULAR VOLUME 86.7 FL (80.0-94.0); MEAN PLATELET VOLUME 8.5 FL (7.4-10.4); PLATELET COUNT 107 /CUMM (130-400); RBC DISTRIBUTION WIDTH 14.7 % (11.5-14.5); RED BLOOD CELL CT 3.81 /CUMM (4.70-6.10); WHITE BLOOD CELL COUNT 5.5 /CUMM (4.8-10.8)
--- NOTE | 2017-11-10 11:41 | PN- Att Addend ---
Attending Addendum Attending Brief Note Patient seen and examined, slightly better today. Patient is admitted with acute confusion likely secondary to infectious etiology from bronchitis as well as early pneumonia. Vital Signs Date Time Temp Pulse Resp B/P B/P Pulse O2 O2 Flow FiO2 Mean Ox Delivery Rate 11/10 1030 Room Air Room Air 11/10 0844 75 126/64 11/10 0800 Room Air 11/10 0620 99.0 75 20 126/64 93 Room Air 11/10 0056 99.1 80 22 127/75 95 Room Air 11/09 2330 100.4 83 18 130/78 95 Room Air 11/09 2059 98 Room Air 11/09 2033 99.5 76 20 148/82 98 Room Air 11/09 1806 99.3 73 18 134/76 98 Room Air on exam; aox3, nad. cv; s1,s2, rrr resp; decrease bs at b/l bases r sided sounds decrease > left. abd; soft, nt, bs+ ext; no edema Laboratory Tests 11/10 11/09 0640 2118 Chemistry Sodium (137 - 145 mmol/L) 138 Potassium (3.5 - 5.1 mmol/L) 4.0 Chloride (98 - 107 mmol/L) 103 Carbon Dioxide (22 - 30 mmol/L) 25 Anion Gap (5 - 16) 9 BUN (9 - 20 mg/dL) 19 Creatinine (0.7 - 1.2 mg/dL) 0.9 Estimated GFR (>60 ml/min) > 60 BUN/Creatinine Ratio (7 - 25 %) 21.1 Lactic Acid Cancelled Vitamin B12 (239 - 931 pg/mL) 657 Folate (2.76 - 20.0 ng/mL) 19.5 Hematology CBC w Diff NO MAN DIFF REQ WBC (4.8 - 10.8 /CUMM) 5.5 RBC (4.70 - 6.10 /CUMM) 3.81 L Hgb (14.0 - 18.0 G/DL) 11.1 L Hct (42 - 52 %) 33.0 L MCV (80.0 - 94.0 FL) 86.7 MCH (27.0 - 31.0 PG) 29.0 MCHC (33.0 - 37.0 G/DL) 33.5 RDW (11.5 - 14.5 %) 14.7 H Plt Count (130 - 400 /CUMM) 107 L MPV (7.4 - 10.4 FL) 8.5 Gran % (42.2 - 75.2 %) 61.4 Lymphocytes % (20.5 - 51.1 %) 20.9 Monocytes % (1.7 - 9.3 %) 17.0 H Eosinophils % (0 - 5 %) 0.2 Basophils % (0.0 - 2.0 %) 0.5 Absolute Granulocytes (1.4 - 6.5 /CUMM) 3.4 Absolute Lymphocytes (1.2 - 3.4 /CUMM) 1.2 Absolute Monocytes (0.10 - 0.60 /CUMM) 0.9 H Absolute Eosinophils (0.0 - 0.7 /CUMM) 0 Absolute Basophils (0.0 - 0.2 /CUMM) 0 11/09 11/09 191 1908 Chemistry Sodium (137 - 145 mmol/L) 136 L Potassium (3.5 - 5.1 mmol/L) 4.3 Chloride (98 - 107 mmol/L) 100 Carbon Dioxide (22 - 30 mmol/L) 25 Anion Gap (5 - 16) 11 BUN (9 - 20 mg/dL) 20 Creatinine (0.7 - 1.2 mg/dL) 1.0 Estimated GFR (>60 ml/min) > 60 BUN/Creatinine Ratio (7 - 25 %) 20.0 Glucose (65 - 99 mg/dL) 89 Lactic Acid (0.7 - 2.1 mmol/L) 1.0 Calcium (8.4 - 10.2 mg/dL) 8.5 Phosphorus (2.5 - 4.5 mg/dL) 3.3 Magnesium (1.6 - 2.3 mg/dL) 1.7 Total Bilirubin (0.2 - 1.3 mg/dL) 0.7 AST (17 - 59 U/L) 29 ALT (21 - 72 U/L) 18 L Alkaline Phosphatase (< 127 U/L) 105 Troponin I (<0.11 ng/ml) 0.03 Byc-V-Bhothlcqwxn Pept (<125 pg/mL) 4320 H Total Protein (6.3 - 8.2 g/dL) 7.2 Albumin (3.5 - 5.0 g/dL) 3.9 Globulin (1.9 - 4.2 gm/dL) 3.3 Albumin/Globulin Ratio (1.1 - 2.2 %) 1.2 Amylase (30 - 110 U/L) 69 Lipase (23 - 300 U/L) 94 TSH (0.270 - 4.200 uIU/mL) 0.566 Hematology CBC w Diff NO MAN DIFF REQ WBC (4.8 - 10.8 /CUMM) 6.2 RBC (4.70 - 6.10 /CUMM) 4.07 L Hgb (14.0 - 18.0 G/DL) 11.8 L Hct (42 - 52 %) 35.2 L MCV (80.0 - 94.0 FL) 86.3 MCH (27.0 - 31.0 PG) 29.1 MCHC (33.0 - 37.0 G/DL) 33.7 RDW (11.5 - 14.5 %) 14.8 H Plt Count (130 - 400 /CUMM) 127 L MPV (7.4 - 10.4 FL) 8.4 Gran % (42.2 - 75.2 %) 75.8 H Lymphocytes % (20.5 - 51.1 %) 11.1 L Monocytes % (1.7 - 9.3 %) 12.1 H Eosinophils % (0 - 5 %) 0.5 Basophils % (0.0 - 2.0 %) 0.5 Absolute Granulocytes (1.4 - 6.5 /CUMM) 4.7 Absolute Lymphocytes (1.2 - 3.4 /CUMM) 0.7 L Absolute Monocytes (0.10 - 0.60 /CUMM) 0.7 H Absolute Eosinophils (0.0 - 0.7 /CUMM) 0 Absolute Basophils (0.0 - 0.2 /CUMM) 0 Urines Urine Color (YEL,AMB,STR) YEL Urine Clarity (CLEAR) CLEAR Urine pH (5.0 - 8.0) 6.0 Ur Specific [place] (1.001 - 1.035) 1.025 Urine Protein (NEG,<30 MG/DL) TRACE H Urine Ketones (NEG) NEG Urine Nitrite (NEG) NEG Urine Bilirubin (NEG) NEG Urine Urobilinogen (0.1 - 1.0 EU/dl) 0.2 Ur Leukocyte Esterase (NEG) NEG Ur Microscopic SEDIMENT EXAMINED Urine RBC (0 - 5 /HPF) FEW H Urine WBC (0 - 2 /HPF) RARE Urine Mucus (FEW,NONE) MOD H Urine Hemoglobin (NEG) TRACE-INTACT H Urine Glucose (N MG/DL) NEG A/P; 82 y/o M with pmh sig for AAA, HTN, CHF, A. fib status post pacemaker defibrillator placement, COPD, right knee arthritis, prostate cancer status post chemotherapy approximately 78 years ago currently in remission admitted with acute confusion secondary to acute bronchitis as well as possible early pneumonia which is community-acquired. Patient currently on ceftriaxone and azithromycin which will be continued. Urine Legionella strep antigen negative. We'll follow-up on the sputum cultures. Patient also mentions that his anticoagulation will be switched to Eliquis per his doctor because that is cheaper. Currently he takes Xarelto because he still has some left. At this point we'll switch him to Eliquis and patient will be instructed to continue taking Eliquis upon discharge. Patient encouraged emulation. DVT prophylaxis; Eliquis. Noted a drop in platelet count. Will monitor. This could be secondary to infection.
[2017-11-10 14:41] VITALS: BP 106/60
[2017-11-11 06:48] VITALS: BP 120/76
--- NOTE | 2017-11-11 07:10 | PN- Housestaff ---
Litzy Alvarado 11/11/17 0710: Subjective Follow-up For: Bronchitis CAP Subjective: Patient reports persistent cough and chest congestion. Review of Systems Constitutional: Reports: see HPI. Objective Last 24 Hrs of Vital Signs/I&O Vital Signs Date Time Temp Pulse Resp B/P B/P Pulse O2 O2 Flow FiO2 Mean Ox Delivery Rate 11/11 0648 98.8 85 20 120/76 94 Room Air 11/10 2215 98.4 92 20 93 11/10 2033 76 110/72 11/10 1915 93 Room Air 11/10 1600 Room Air 11/10 1441 98.3 74 22 106/60 95 11/10 1030 Room Air Room Air 11/10 0844 75 126/64 11/10 0800 Room Air Intake & Output 11/11 0800 11/11 0000 11/10 1600 Intake Total 074 118 8927 Output Total 200 750 625 Balance 40 -50 580 Intake, IV 225 Intake, Oral 240 700 980 Number 2 Bowel Movements Output, Urine 200 750 625 Patient 185 lb Weight Physical Exam General Appearance: Alert, Oriented X3, Cooperative Cardiovascular: Regular Rate, Normal S1, Normal S2 Lungs: Decreased breath sounds Abdomen: Normal Bowel Sounds, Soft, No Tenderness Current Medications: Current Medications Sig/James Start time Last Medication Dose Route Stop Time Status Admin Albuterol Sulfate 3 ML BID 11/10 1028 AC 11/10 INH 191 Apixaban 5 MG BID 11/11 0900 AC PO Atorvastatin Calcium 80 MG 1700 11/10 1700 AC 11/10 PO 1605 Azithromycin 500 MG DAILY 11/10 0900 AC 11/10 Sodium Chloride 250 ML IV 0847 Budesonide/ 2 PUF BID 11/10 0900 AC 11/10 Formoterol Fumarate INH 203 Ceftriaxone Sodium 1,000 MG Q24H 11/11 0200 AC 11/11 IV 0107 Ceftriaxone Sodium 1,000 MG DAILY 11/10 0215 DC 11/10 IV 0221 Clotrimazole 1 ZAY BID 11/10 09 AC 11/10 TOP 2032 Fluticasone 2 SPRAY DAILY 11/10 0946 AC 11/10 Propionate AMADA 1057 Guaifenesin 600 MG Q12 11/10 0900 AC 11/10 PO 2033 Ipratropium [place] 2.5 ML BID 11/10 1028 AC 11/10 INH 1915 Lactobacillus 1 CAP DAILY 11/10 0900 AC 11/10 Acidophilus PO 0844 Lisinopril 5 MG DAILY 11/10 0900 AC 11/10 PO 0844 Metoprolol Succinate 25 MG QPM 11/10 2100 AC 11/10 PO 203 Montelukast Sodium 10 MG 2200 11/10 2200 AC 11/10 PO 203 Oxymetazoline HCl 2 SPRAY BID 11/10 0945 AC 11/10 AMADA 203 Patient Medication 1 ED ONE ONE 11/10 1130 DC Teaching ED 11/10 1131 Rivaroxaban 20 MG DAILY 11/10 0900 DC 11/10 PO 0843 Sodium Chloride 2 SPRAY Q4P PRN 11/10 0615 AC AMADA Sodium Chloride 1,000 ML Q13H 11/09 2145 DC 11/09 IV 2219 Last 24 Hrs of Lab/Juan David Results Last 24 Hrs of Labs/Mics: Laboratory Tests 11/11/17 0630: CBC w Diff Pending, WBC Pending, RBC Pending, Hgb Pending, Hct Pending, MCV Pending, MCH Pending, MCHC Pending, RDW Pending, Plt Count Pending, MPV Pending Microbiology 11/10 0857 LOWER RESP: Respiratory Culture - RES 11/10 0857 LOWER RESP: Gram Stain - RES Assessment/Plan Assessment: 82-year-old male with PMH significant for AAA, HTN, CHF, A. fib status post pacemaker defibrillator placement, COPD, right knee arthritis, prostate cancer status post chemotherapy approximately 78 years ago currently in remission, who is brought in by ambulance to the [facility] ED after being found confused and weak by his neighbor. #Bronchitis with underlying pneumonia Plan We will transition azithromycin, IV ceftriaxone to Augmentin to complete a 7-day course TRC/nebs PRN Await final sputum culture, blood cultures Urine legionella and strep ag negative Continue lisinopril Lasix on hold We spoke to Dr. Ascencio who states that the patient should be on Apixaban 5 mg BID We will discontinue his Xarelto and restart him on APixaban Diet: Heart healthy diet DVT prophylaxis: Apixaban CODE STATUS: Full Problem List: 1. Pneumonia 2. Bronchitis Pain Ratin Pain Location: NA Pain Goal: Remain pain free Pain Plan: NA Tomorrow's Labs & Rationales: none Alysia Guerrero MD 11/11/17 1119: Attending MD Review Statement Attending Statement Attending MD Statement: examined this patient, discuss w/resident/PA/[employer]PER[employer], agreed w/resident/PA/[employer] SUPERVISOR, reviewed EMR data (avail), discussed with nursing, discussed with case mgmt, reviewed images, amended to note Attending Assessment/Plan: Patient seen and examined, doing overall better. Breathing is improved. Patient is afebrile with white count normal. vss. on exam; lungs are clear but decreased bs at bases. Laboratory Tests 11/11 0630 Hematology CBC w Diff NO MAN DIFF REQ WBC (4.8 - 10.8 /CUMM) 7.2 RBC (4.70 - 6.10 /CUMM) 3.86 L Hgb (14.0 - 18.0 G/DL) 11.3 L Hct (42 - 52 %) 33.4 L MCV (80.0 - 94.0 FL) 86.5 MCH (27.0 - 31.0 PG) 29.2 MCHC (33.0 - 37.0 G/DL) 33.7 RDW (11.5 - 14.5 %) 14.9 H Plt Count (130 - 400 /CUMM) 111 L MPV (7.4 - 10.4 FL) 8.7 Gran % (42.2 - 75.2 %) 60.5 Lymphocytes % (20.5 - 51.1 %) 23.0 Monocytes % (1.7 - 9.3 %) 15.3 H Eosinophils % (0 - 5 %) 0.7 Basophils % (0.0 - 2.0 %) 0.5 Absolute Granulocytes (1.4 - 6.5 /CUMM) 4.4 Absolute Lymphocytes (1.2 - 3.4 /CUMM) 1.7 Absolute Monocytes (0.10 - 0.60 /CUMM) 1.1 H Absolute Eosinophils (0.0 - 0.7 /CUMM) 0.1 Absolute Basophils (0.0 - 0.2 /CUMM) 0 A/P; 82 y/o M with pmh sig for AAA, HTN, CHF, A. fib status post pacemaker defibrillator placement, COPD, right knee arthritis, prostate cancer status post chemotherapy approximately 78 years ago currently in remission admitted with acute confusion secondary to acute bronchitis as well as possible early pneumonia which is community-acquired. Patient overall doing better. We will switch him to oral antibiotics. He can be discharged home on oral antibiotics. Will give him the prescription for the guaifenesin for his cough. He recommended patient should use Acapella device and IS. We'll also need in the prescription for albuterol inhaler. The rest of his home medications will be continued. We have given him Eliquis in the hospital and recommend that she continue to take that when he goes home. He will follow-up with his primary care doctor as an outpatient. Patient otherwise medically stable for discharge home today. Per nursing he is ambulating without any issues and he is not requiring any oxygen.
[2017-11-11] MEDS ORDERED: FLUTICASONE PRO16 GM NAS ×2 (07:29→09:43)
[2017-11-11] MEDS ORDERED: GUAIFENESIN ER600 MG PO ×2 (07:29→09:43)
[2017-11-11] MEDS ORDERED: AUGMENTIN 875-1 EACH PO ×2 (07:29→09:43)
--- NOTE | 2017-11-11 07:30 | Patient Discharge Instructions ---
Discharge Instructions General Discharge Information You were seen/treated for: Pneumonia You had these procedures: none Special Instructions: Follow up with your PCP within 1 week of discharge Diet Continue normal diet: Yes Activity Full Activity/No Limits: Yes Acute Coronary Syndrome Inclusion Criteria At DC or during hospital stay patient has or had the following: ACS DIAGNOSIS No Discharge Core Measures Meds if any: Prescribed or Continued at Discharge Meds if any: NOT Prescribed or Continued at Discharge Congestive Heart Failure Inclusion Criteria At DC or during hospital stay patient has or had the following: CHF DIAGNOSIS No Discharge Core Measures Meds if any: Prescribed or Continued at Discharge Meds if any: NOT Prescribed or Continued at Discharge Cerebrovascular accident Inclusion Criteria At DC or during hospital stay patient has or had the following: CVA/TIA Diagnosis No Discharge Core Measures Meds if any: Prescribed or Continued at Discharge Meds if any: NOT Prescribed or Continued at Discharge Venous thromboembolism Inclusion Criteria VTE Diagnosis No VTE Type NONE VTE Confirmed by (Test) NONE Discharge Core Measures - Per Current guidelines, there needs to be overlap - treatment for the first 5 days of Warfarin therapy. - If discharged on Warfarin prior to 5 days of - overlap therapy, the patient will need to be - assessed for post discharge needs including - *Post discharge parental anticoagulation - *Warfarin and/or parental anticoagulation education - *Follow up date to check INR post discharge At least 5 days overlap therapy as Inpatient No Meds if any: Prescribed or Continued at Discharge Note: Overlap Therapy is Warfarin and Anticoagulant Meds if any: NOT Prescribed or Continued at Discharge
[2017-11-11] MEDS ORDERED: ELIQUIS5 M1 PO ×2 (07:31→09:43)
[2017-11-11 08:10] LABS: ABSOLUTE BASOPHIL COUNT 0 /CUMM (0.0-0.2); ABSOLUTE EOSINOPHIL COUNT 0.1 /CUMM (0.0-0.7); ABSOLUTE GRANULOCYTE CT 4.4 /CUMM (1.4-6.5); ABSOLUTE LYMPH COUNT 1.7 /CUMM (1.2-3.4); ABSOLUTE MONOCYTE COUNT 1.1 /CUMM (0.10-0.60); BASOPHIL % 0.5 % (0.0-2.0); EOSINOPHIL % 0.7 % (0-5); GRANULOCYTE % 60.5 % (42.2-75.2); HEMATOCRIT 33.4 % (42-52); MEAN CORPUSCULAR HGB 29.2 PG (27.0-31.0); MEAN CORPUSCULAR HGB CONC 33.7 G/DL (33.0-37.0); MEAN CORPUSCULAR VOLUME 86.5 FL (80.0-94.0); MEAN PLATELET VOLUME 8.7 FL (7.4-10.4); PLATELET COUNT 111 /CUMM (130-400); RBC DISTRIBUTION WIDTH 14.9 % (11.5-14.5); RED BLOOD CELL CT 3.86 /CUMM (4.70-6.10); WHITE BLOOD CELL COUNT 7.2 /CUMM (4.8-10.8)
[2017-11-11 09:03] VITALS: BP 120/76
[2017-11-11] MEDS ORDERED: ALBUTEROL2.5 MG/3 M INH (11:32)
--- NOTE | 2017-11-12 09:34 | Discharge Summary ---
Visit Information Visit Dates Admission Date: 11/09/17 Discharge Date: 11/11/17 Hospital Course Course Attending Physician: Cesar JORGE,Alysia Primary Care Physician: Silva JORGE,Cash Camacho Hospital Course: 82-year-old male with PMH significant for AAA, HTN, CHF, A. fib status post pacemaker defibrillator placement, COPD, right knee arthritis, prostate cancer status post chemotherapy approximately 78 years ago currently in remission, who is brought in by ambulance to the [facility] ED after being found confused and weak by his neighbor. #Bronchitis with underlying pneumonia He was started on IV azithromycin and ceftriaxone. He received TRC/nebs as needed. Urine legionella and strep ag negative. Final sputum culture grew yeast and gram positive cocci. He was eventually transitioned to Augmentin to complete a 7-day course. #Chronic medical conditions Patient reported he was taking Xarelto because he had left overs he wanted to complete before starting his Apixaban. We spoke to Dr. Ascencio who stated that the patient should be on Apixaban 5 mg BID. We discontinued his Xarelto and restarted him on Apixaban. We continued his other home meds Allergies: Coded Allergies: NO KNOWN ALLERGIES (NO) (10/07/10) NKA PER ANTIBIOTIC ORDER SHEET ON 10/07/10 -SJ Pertinent Lab Results: 11/09/17 EXAM TYPE: RAD - XRY-PORTABLE CHEST XRAY FINDINGS: The lungs are clear without consolidation, edema, effusion, or pneumothorax. The heart is top normal in size and the aorta is calcified. There is a left chest wall AICD in position. There are sternotomy wires in place. There are postoperative changes in the cervical spine. IMPRESSION: No active disease in the chest. 11/09/17 EXAM TYPE: CAT - CT HEAD WO IV CONTRAST IMPRESSION: 1. There is no evidence of a recent intracranial hemorrhage. 2. No acute infarct. 3. Moderately extensive nonspecific white matter low attenuation. 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 Fairly extensive paranasal sinus and nasal cavity thickening. 11/09/17 EXAM TYPE: CAT - CT ABD & PELVIS W/O IV CONTRAS IMPRESSION: Study limited by absence of contrast. No definite urinary, biliary or GI tract obstruction. No abscess. Difficult to assess the stomach but there could be some distal gastric wall thickening. This is not a definite finding. Disposition Summary Disposition Principal Diagnosis: Bronchitis CAP Additional Diagnosis: as above Discharge Disposition: home health services Discharge Instructions General Discharge Information Code Status: Full Code Patient's Diet: Heart healthy Patient's Activity: Full Follow-Up Instructions/Appts: Follow up with your PCP within 1 week of discharge Medications at Discharge Discharge Medications: Stop taking the following medications: Rivaroxaban (Xarelto) 20 MG TABLET ORAL Every night Qty = 90 Continue taking these medications: Atorvastatin Calcium (Lipitor) 80 MG TABLET 1 Tablet ORAL DAILY Comments: Last Taken:11/10/17 Time: 4PM Bacitracin (Bacitracin) 500 UNIT/GRAM OINT...G. 1 Application On the skin TWICE DAILY Instructions: apply to affected area(s) Comments: DID NOT ADMINISTER Clotrimazole (Lotrimin AF) 1 % CREAM..G. 1 Application On the skin TWICE DAILY Instructions: apply to affected area(s) Comments: Last Taken: 11/11/17 Time: 9AM Lisinopril (Prinivil) 5 MG TABLET 1 Tablet ORAL Every Morning Comments: Last Taken: 11/11/17 Time: 9AM Lactobacillus Acidophilus (Acidophilus) 1 EACH CAPSULE 1 Capsule ORAL DAILY Comments: Last Taken: 11/11/17 Time: 0903 Metoprolol Succinate (Metoprolol Succinate) 25 MG TAB 1 Tablet ORAL Every night Qty = 45 Comments: Last Taken: 11/10/17 Time: 8:30PM Furosemide (Furosemide) 20 MG TABLET 1 Tablet ORAL THURSDAY, THURSDAY AND THURSDAY Qty = 36 Comments: DID NOT ADMINISTER IN HOSPITAL Fluticasone/Vilanterol (Breo Ellipta 100-25 Mcg INH) (Unknown Strength) BLST.W.DEV 1 Inhalation Inhale through mouth DAILY as needed for RESP Comments: DID NOT ADMINISTER IN HOSPITAL Montelukast Sodium (Montelukast Sodium) 10 MG TABLET 1 Tablet ORAL DAILY Comments: Last Taken: 11/10/17 Time: 8:30PM Start taking the following new medications: Fluticasone Propionate (Fluticasone Propionate) 50 MCG/ACTUATION SPRAY.SUSP 2 [place] In the nose DAILY Qty = 1 No Refills Instructions: . Comments: Last Taken: 11/11/17 Time: 9AM Guaifenesin (Guaifenesin ER) 600 MG TAB.ER.12H 600 Milligram ORAL EVERY 12 HOURS Qty = 14 No Refills Instructions: . Comments: Last Taken: 11/11/17 Time: 9AM Apixaban (Eliquis) 5 MG TABLET 1 Tablet ORAL TWICE DAILY Qty = 60 No Refills Instructions: . Comments: Last Taken: 11/11/17 Time: 9AM Amoxicillin/Potassium Clav (Augmentin 875-125 Tablet) 875 MG-125 MG TABLET 1 Tablet ORAL TWICE DAILY Qty = 10 No Refills Instructions: . Comments: DID NOT ADMINISTER IN HOSPITAL Albuterol Sulfate (Albuterol Sulfate) 2.5 MG/3 ML (0.083 %) VIAL.NEB 3 [place] Inhale through mouth TWICE DAILY Qty = 1 No Refills Comments: Last Taken: 11/11/17 Time: 10AM Copies To: Silva JORGE,Cash Ascencio MD,Cash Ascencio MD,Cash Camacho
== END 2017-11-11 12:18 | disposition home health service (06) | DRG 202 ==
LOC: ERH 17:54 → 2NA 22:58 → ERHI 22:58 → EDBEDREQ 23:31 → ENRESERV 23:45 → 2NA 11-10 00:50 → ENPENDDIS 11-11 10:03 → 2NA 11-11 12:18
PROVIDERS: Physician Assistant Medical; Student in an Organized Health Care Education/Training Program
DX: J20.9 Acute bronchitis, unspecified (principal); J18.9 Pneumonia, unspecified organism; J32.9 Chronic sinusitis, unspecified; I11.0 Hypertensive heart disease with heart failure; I50.9 Heart failure, unspecified; I48.91 Unspecified atrial fibrillation; Z79.01 Long term (current) use of anticoagulants; J44.9 Chronic obstructive pulmonary disease, unspecified; Z95.0 Presence of cardiac pacemaker; Z85.46 Personal history of malignant neoplasm of prostate; Z92.21 Personal history of antineoplastic chemotherapy; Z79.51 Long term (current) use of inhaled steroids
CPT/HCPCS: 2NASP; ERO; 36592; 71045; 74176; 81001; 82436; 87040; 87070; 87071; 87449; 87450; 93005; 93010; 96374; 97112-GO; 97116-GO; 97161-GP; J0456; J0696; J3490; J7040